=== PATIENT | female | born 1995 | race Two or more races ===

== ENCOUNTER 2017-12-06 22:52 | Emergency (ER) | payer OTHER ==
[~2017-12-06] VITALS: Ht 152.4 cm; Wt 105.7 kg
[2017-12-06 23:19] VITALS: Ht 152.4 cm; Wt 105.7 kg
[2017-12-07 00:53] VITALS: BP 121/76
== END 2017-12-07 00:53 | disposition home or self-care (01) ==
LOC: ED 22:52
DX: G56.01 Carpal tunnel syndrome, right upper limb (principal); M25.571 Pain in right ankle and joints of right foot

== ENCOUNTER 2018-12-13 17:32 | Emergency (ER) | payer OTHER ==
[~2018-12-13] VITALS: Ht 152.4 cm; Wt 112.0 kg
[2018-12-13 17:34] VITALS: BP 124/73; Ht 152.4 cm; Wt 112.0 kg
== END 2018-12-13 18:09 | disposition home or self-care (01) ==
LOC: ED 17:32
DX: H92.03 Otalgia, bilateral (principal)